=== PATIENT | male | born 1940 ===

== ENCOUNTER 2017-04-29 02:42 | Inpatient (IN) | payer MEDICARE ==
[2017-04-29 02:51] VITALS: BMI 26.6
--- NOTE | 2017-04-29 03:12 | ED PDOC ---
HPI: Chest Pain Time Seen by Provider: 04/29/17 02:45 Chief Complaint (Nursing): Chest Pain Chief Complaint (Provider): chest pain History Per: Patient History/Exam Limitations: no limitations Onset/Duration Of Symptoms: Hrs Current Symptoms Are (Timing): Better Nitro Therapy Administered: 1, Per EMS Additional History Per: Patient, Family Additional Complaint(s): The patient is a 77yo male with history of DM, hypertension, hypercholesterolemia, presents to the ED for evaluation of left neck pain radiating down to his chest. Patient reports the pain was sudden onset and atraumatic. Of note, patient took 325 mg Aspirin and was given 1 nitro therapy by EMS on his way here which helped with the pain. Patient reports he currently does not have chest pain or shortness of breath but does have neck pain. He denies any other medical complaints. Past Medical History Reviewed: Historical Data, Nursing Documentation, Vital Signs Vital Signs: Last Vital Signs Temp 97.8 F 04/30/17 00:05 Pulse 70 04/30/17 00:05 Resp 20 04/30/17 00:05 BP 121/68 04/30/17 00:05 Pulse Ox 97 04/30/17 00:05 - Medical History PMH: Diabetes, HTN, Hypercholesterolemia Denies: Chronic Kidney Disease - Surgical History Surgical History: No Surg Hx - Family History Family History: States: No Known Family Hx, Unknown Family Hx - Social History Current smoker - smoking cessation education provided: No Alcohol: None Drugs: Denies - Home Medications Home Medications: Ambulatory Orders Medication Instructions Recorded Allopurinol [Zyloprim] 1 tab PO DAILY 04/29/17 Aspirin [Adult Low Dose Aspirin EC] 1 tab PO DAILY 04/29/17 Azilsartan Med/Chlorthalidone 1 tab PO DAILY 04/29/17 [Edarbyclor 40-12.5 mg Tablet] Cholecalciferol (Vitamin D3) 1 tab PO DAILY 04/29/17 [Vitamin D3] Clopidogrel [Plavix] 1 tab PO DAILY 04/29/17 Linagliptin [Tradjenta] 1 tab PO DAILY 04/29/17 Nateglinide [Starlix] 1 tab PO TID 04/29/17 Yelcy-3-Pjhi Ethyl Esters 1 GM 2 tab PO DAILY 04/29/17 [Lovaza] Ranolazine [Ranexa] 1 tab PO BID 04/29/17 - Allergies Allergies/Adverse Reactions: Allergies Allergy/AdvReac Type Severity Reaction Status Date / Time No Known Allergies Allergy Verified 04/29/17 02:51 Review of Systems ROS Statement: Except As Marked, All Systems Reviewed And Found Negative Cardiovascular: Positive for: Chest Pain (now resolved) Respiratory: Negative for: Shortness of Breath Musculoskeletal: Positive for: Neck Pain (left sided) Physical Exam - Reviewed Nursing Documentation Reviewed: Yes Vital Signs Reviewed: Yes - Physical Exam Appears: Positive for: Well, Non-toxic, No Acute Distress Head Exam: Positive for: ATRAUMATIC, NORMAL INSPECTION, NORMOCEPHALIC Skin: Positive for: Normal Color, Warm, DRY Eye Exam: Positive for: Normal appearance Neck: Positive for: Normal, Supple Cardiovascular/Chest: Positive for: Regular Rate, Rhythm Respiratory: Positive for: Normal Breath Sounds. Negative for: Respiratory Distress Gastrointestinal/Abdominal: Positive for: Normal Exam, Soft. Negative for: Tenderness Extremity: Positive for: Normal ROM. Negative for: Deformity, Swelling Neurologic/Psych: Positive for: Alert, Oriented. Negative for: Motor/Sensory Deficits - Laboratory Results Result Diagrams: 04/29/17 03:20 04/29/17 03:20 - ECG O2 Sat by Pulse Oximetry: 99 (RA) Pulse Ox Interpretation: Normal Medical Decision Making Medical Decision Making: Time: 0305 Impression: Neck pain, chest pain Plan: -- EKG -- Labs -- Chest x-ray Reassess Time: [address] Wooten, who will admit the patient. milton strong cardiac history pt needs admission for cardiac monitoring and rule out [place]/malignant arrythmia pt got asa Scribe Attestation: Documented by Agnieszka Kinney acting as a scribe for Cat Ro MD. Provider Attestation: All medical record entries made by the Scribe were at my direction and personally dictated by me. I have reviewed the chart and agree that the record accurately reflects my personal performance of the history, physical exam, medical decision making, and the department course for this patient. I have also personally directed, reviewed, and agree with the discharge instructions and disposition. Disposition - Clinical Impression Clinical Impression: Chest pain - Patient ED Disposition Is Patient to be Admitted: Yes - Disposition Disposition Time: 04:00 Condition: STABLE
[2017-04-29 03:23] LABS: BASO % 0.6 % (0.0-2.0); EOS # 0.1 K/uL (0.0-0.7); EOS % 1.6 % (0.0-4.0); HEMOGLOBIN 16.8 g/dL (12.0-18.0); LYMPH # 3.2 K/uL (1.0-4.3); LYMPH % 46.9 % (20.0-40.0); MEAN CELL VOLUME 86.6 fl (80.0-94.0); MEAN CORPUSCULAR HEMOGLOBIN 29.5 pg (27.0-31.0); MEAN PLATELET VOLUME 9.6 fl (7.2-11.7); MONO # 0.7 K/uL (0.0-0.8); NEUT # 2.8 K/uL (1.8-7.0); NEUT % 40.9 % (50.0-75.0); NRBC % 0.1 % (0.0-0.0); RBC 5.71 Mil/uL (4.40-5.90); RED CELL DISTRIBUTION WIDTH 13.8 % (11.5-14.5); WHITE BLOOD COUNT 6.8 K/uL (4.8-10.8)
[2017-04-29 03:31] LABS: ALB/GLOB RATIO 1.3 (1.0-2.1); ALBUMIN 4.1 g/dL (3.5-5.0); ALT/SGPT 53 U/L (21-72); AST/SGOT 26 U/L (17-59); BLOOD UREA NITROGEN 25 mg/dl (9-20); CALCIUM 9.9 mg/dL (8.4-10.2); GFR AFRICAN-AMERICAN 55; GFR NON-AFRICAN AMERICAN 46
[2017-04-29] MEDS ORDERED: Patient's Own Med (Cholecalciferol (Vitamin D3) [Vitamin D3] 1 TAB) PO SCH (14:30)
--- NOTE | 2017-04-29 15:03 | CP.PCM.HP ---
<Nika Madrid - Last Filed: 04/29/17 15:12> History of Present Illness - History of Present Illness History of Present Illness: 77yo male with PMHx of DM, hypertension, hypercholesterolemia, presents to the ED c/o sudden left sided chest pain, radiating to left neck, and no associated to SOB, nausea, vomiting or other complain. Of note, patient took 325 mg Aspirin and was given 1 nitro therapy by EMS on his way here which helped with the pain. Patient denies chest pain, SOB, N/V or other complains at this evaluation. Present on Admission - Present on Admission Any Indicators Present on Admission: No History of DVT/PE: No History of Uncontrolled Diabetes: No Urinary Catheter: No Decubitus Ulcer Present: No Review of Systems - Constitutional Constitutional: As Per HPI Past Patient History - Past Medical History & Family History Past Medical History?: Yes - Past Social History Smoking Status: Never Smoked - CARDIAC Hx Cardiac Disorders: Yes Hx Hypercholesterolemia: Yes Hx Hypertension: Yes - PULMONARY Hx Respiratory Disorders: No - NEUROLOGICAL Hx Neurological Disorder: No - HEENT Hx HEENT Problems: Yes Hx Cataracts: Yes - RENAL Hx Chronic Kidney Disease: No - ENDOCRINE/METABOLIC Hx Endocrine Disorders: Yes Hx Diabetes Mellitus Type 2: Yes - HEMATOLOGICAL/ONCOLOGICAL Hx Blood Disorders: No Hx AIDS: No Hx Human Immunodeficiency Virus (HIV): No - INTEGUMENTARY Hx Dermatological Problems: No - MUSCULOSKELETAL/RHEUMATOLOGICAL Hx Musculoskeletal Disorders: No Hx Falls: No - GASTROINTESTINAL Hx Gastrointestinal Disorders: No - GENITOURINARY/GYNECOLOGICAL Hx Genitourinary Disorders: No - PSYCHIATRIC Hx Psychophysiologic Disorder: No Hx Substance Use: No - SURGICAL HISTORY Hx Surgeries: Yes Hx Cataract Extraction: Yes Hx Cardiac Catheterization: Yes Hx Eye Surgery: Yes (CATARACT, RIGHT RETINAL SURGERY) - ANESTHESIA Hx Anesthesia: Yes Hx Anesthesia Reactions: Yes Hx Malignant Hyperthermia: No Has any member of the family had a problem w/ anesthesia?: No Meds Allergies/Adverse Reactions: Allergies Allergy/AdvReac Type Severity Reaction Status Date / Time No Known Allergies Allergy Verified 04/29/17 02:51 Physical Exam - Constitutional Appears: Non-toxic, No Acute Distress - Head Exam Head Exam: NORMAL INSPECTION - Eye Exam Eye Exam: Normal appearance - ENT Exam ENT Exam: Mucous Membranes Moist - Respiratory Exam Respiratory Exam: Clear to Auscultation Bilateral, NORMAL BREATHING PATTERN - Cardiovascular Exam Cardiovascular Exam: REGULAR RHYTHM, +S1, +S2 - GI/Abdominal Exam GI & Abdominal Exam: Normal Bowel Sounds, Soft. absent: Distended, Guarding, Tenderness - Extremities Exam Extremities exam: Positive for: normal inspection. Negative for: calf tenderness, pedal edema - Neurological Exam Neurological exam: Alert, Oriented x3 - Skin Skin Exam: Dry, Intact, Normal Color Results - Vital Signs Recent Vital Signs: Last Vital Signs Temp 98.1 F 04/29/17 08:00 Pulse 53 L 04/29/17 12:56 Resp 18 04/29/17 12:56 BP 138/81 04/29/17 08:00 Pulse Ox 97 04/29/17 12:56 - Labs Result Diagrams: 04/29/17 03:20 04/29/17 03:20 Labs: Laboratory Results - last 24 hr 04/29/17 04/29/17 04/29/17 07:37 11:48 14:10 POC Glucose (mg/dL) 85 Troponin I 0.0230 0.0290 Assessment & Plan - Assessment and Plan (Free Text) Assessment: 77yo male with history of DM, hypertension, hypercholesterolemia, admitted to r /o ACS. Plan: Chest pain c/w aspirin 81 mg PO daily c/w Plavix 75 mg PO daily F/u EKG f/u Troponin I x 3 f/u cardiology consult recommendations appreciated -f/u echo Diabetes Mellitus type 2 c/w home januvia 100 mg PO daily c/w home nateglinide 120 mg TID c/w accucheck ACHS DVT prophylaxis Lovenox 40 mg SC daily - Date & Time Date: 04/29/17 Time: 10:30 <Adam Wooten - Last Filed: 04/30/17 10:03> Results - Vital Signs Recent Vital Signs: Last Vital Signs Temp 98.3 F 04/30/17 08:17 Pulse 67 04/30/17 08:17 Resp 20 04/30/17 08:17 BP 147/79 04/30/17 08:17 Pulse Ox 96 04/30/17 08:17 - Labs Result Diagrams: 04/30/17 05:20 04/30/17 05:20 Assessment & Plan - Assessment and Plan (Free Text) Plan: I was present during evaluation and discussed with Dr Madrid re plans of care and tx. Adam Wooten M.D.
[2017-04-29] MEDS ORDERED: Dextrose 50% SYRINGE Inj (50 ml) IV PRN (15:41)
[2017-04-29] MEDS ORDERED: Glucagon Recombinant 1 mg Inj IM PRN (15:41)
[2017-04-29] MEDS: Enoxaparin 40 mg Syringe SC SCH (16:25)
[2017-04-29] MEDS: Patient's Own Med (Azilsartan Med/Chlorthalidone [Edarbyclor 40-12.5 Mg Tablet] 1 TAB) PO SCH (16:26)
[2017-04-29] MEDS: Insulin Regular 100 units/ml SC SCH ×2 (16:26→22:15)
[2017-04-29 16:33] LABS: INR 1.2 (0.9-1.2); PROTHROMBIN TIME 12.3 Seconds (9.8-13.1)
[2017-04-30] MEDS: Insulin Regular 100 units/ml SC SCH ×4 (06:36→21:24)
[2017-04-30 06:57] LABS: HEMOGLOBIN 17.3 g/dL (12.0-18.0); MEAN CELL VOLUME 87.3 fl (80.0-94.0); MEAN CORPUSCULAR HGB CONC 33.2 g/dL (33.0-37.0); RBC 5.97 Mil/uL (4.40-5.90); RED CELL DISTRIBUTION WIDTH 13.8 % (11.5-14.5); WHITE BLOOD COUNT 6.1 K/uL (4.8-10.8)
[2017-04-30 07:02] LABS: CALCIUM 9.7 mg/dL (8.4-10.2)
[2017-04-30] MEDS ORDERED: LINAGLIPTIN PO SCH (09:00)
--- NOTE | 2017-04-30 10:06 | CP.PCM.DIS ---
Provider - Provider Date of Admission: 04/30/17 06:32 Attending physician: Adam Wooten MD Primary care physician: Angel Rios MD Time Spent in preparation of Discharge (in minutes): 30 Hospital Course - Lab Results Lab Results: Most Recent Lab Values WBC 6.1 K/uL (4.8-10.8) 04/30/17 05:20 RBC 5.97 Mil/uL (4.40-5.90) H 04/30/17 05:20 Hgb 17.3 g/dL (12.0-18.0) 04/30/17 05:20 Hct 52.2 % (35.0-51.0) H 04/30/17 05:20 MCV 87.3 fl (80.0-94.0) 04/30/17 05:20 MCH 29.0 pg (27.0-31.0) 04/30/17 05:20 MCHC 33.2 g/dL (33.0-37.0) 04/30/17 05:20 RDW 13.8 % (11.5-14.5) 04/30/17 05:20 Plt Count 130 K/uL (130-400) 04/30/17 05:20 MPV 9.6 fl (7.2-11.7) 04/29/17 03:20 Neut % (Auto) 40.9 % (50.0-75.0) L 04/29/17 03:20 Lymph % (Auto) 46.9 % (20.0-40.0) H 04/29/17 03:20 [place] % (Auto) 10.0 % (0.0-10.0) 04/29/17 03:20 Eos % (Auto) 1.6 % (0.0-4.0) 04/29/17 03:20 Baso % (Auto) 0.6 % (0.0-2.0) 04/29/17 03:20 Neut # 2.8 K/uL (1.8-7.0) 04/29/17 03:20 Lymph # 3.2 K/uL (1.0-4.3) 04/29/17 03:20 [place] # 0.7 K/uL (0.0-0.8) 04/29/17 03:20 Eos # 0.1 K/uL (0.0-0.7) 04/29/17 03:20 Baso # 0.0 K/uL (0.0-0.2) 04/29/17 03:20 PT 12.3 Seconds (9.8-13.1) 04/29/17 15:48 INR 1.2 (0.9-1.2) 04/29/17 15:48 Sodium 140 mmol/l (132-148) 04/30/17 05:20 Potassium 4.2 MMOL/L (3.6-5.0) 04/30/17 05:20 Chloride 104 mmol/L (98-107) 04/30/17 05:20 Carbon Dioxide 28 mmol/L (22-30) 04/30/17 05:20 Anion Gap 13 (10-20) 04/30/17 05:20 BUN 24 mg/dl (9-20) H 04/30/17 05:20 Creatinine 1.5 mg/dL (0.8-1.5) 04/30/17 05:20 Est GFR ( Amer) 55 04/30/17 05:20 Est GFR (Non-Af Amer) 46 04/30/17 05:20 POC Glucose (mg/dL) 117 mg/dL (65-110) H 04/30/17 05:36 Random Glucose 128 mg/dL (75-110) H 04/30/17 05:20 Calcium 9.7 mg/dL (8.4-10.2) 04/30/17 05:20 Total Bilirubin 0.4 mg/dl (0.2-1.3) 04/29/17 03:20 AST 26 U/L (17-59) 04/29/17 03:20 ALT 53 U/L (21-72) 04/29/17 03:20 Alkaline Phosphatase 65 U/L (38-126) 04/29/17 03:20 Troponin I 0.0260 ng/mL (0.00-0.120) 04/29/17 20:37 Total Protein 7.3 G/DL (6.3-8.2) 04/29/17 03:20 Albumin 4.1 g/dL (3.5-5.0) 04/29/17 03:20 Globulin 3.2 gm/dL (2.2-3.9) 04/29/17 03:20 Albumin/Globulin Ratio 1.3 (1.0-2.1) 04/29/17 03:20 - Hospital Course Hospital Course: Jael starks a 77 y/o male admitted for chest pain Has a hx of HTN hyperlipidemia DM 2 and hypruricemia. Tests showed normal troponins x 3 EKG was normal. He was started on medications and started on Januvia and metfomrin He remained stable for the rest of his stay and was discharged in stable condition and to follow up with Dr Mychal Munroe his PMD in 1 to 2 weeks He was advised to have stress test as outpatient. Discharge Exam - Head Exam Head Exam: ATRAUMATIC, NORMAL INSPECTION, NORMOCEPHALIC - Eye Exam Eye Exam: Normal appearance - Respiratory Exam Respiratory Exam: Clear to PA & Lateral, NORMAL BREATHING PATTERN - Cardiovascular Exam Cardiovascular Exam: REGULAR RHYTHM - GI/Abdominal Exam GI & Abdominal Exam: Normal Bowel Sounds - Neurological Exam Neurological exam: CN II-XII Intact, Oriented x3 - Psychiatric Exam Psychiatric exam: Normal Mood Discharge Plan - Follow Up Plan Condition: STABLE Disposition: HOME/ ROUTINE Additional Instructions: Rx given follow up with Dr munroe. Referrals: Angel Rios MD [Primary Care Provider] -
[2017-04-30] MEDS: Enoxaparin 40 mg Syringe SC SCH (10:18)
[2017-04-30] MEDS: Omega-3-Acid Ethyl Esters 1 GM Cap PO SCH (10:18)
[2017-04-30] MEDS: Patient's Own Med (Azilsartan Med/Chlorthalidone [Edarbyclor 40-12.5 Mg Tablet] 1 TAB) PO SCH (10:38)
--- NOTE | 2017-04-30 11:21 | CARD ---
APPROVED REPORT EXAM: Two-dimensional and M-mode echocardiogram with Doppler and color Doppler. Other Information Quality : GoodRhythm : NSR INDICATION Chest Pain 2D DIMENSIONS IVSd1.26 (0.7-1.1cm)LVDd3.99 (3.9-5.9cm) LVOT Diameter2.04 (1.8-2.4cm)PWd0.86 (0.7-1.1cm) IVSs1.65 (0.8-1.2cm)LVDs2.45 (2.5-4.0cm) FS (%) 38.7 %PWs1.38 (0.8-1.2cm) M-Mode DIMENSIONS Left Atrium (MM)4.18 (2.5-4.0cm)IVSd1.29 (0.7-1.1cm) Aortic Root2.91 (2.2-3.7cm)LVDd4.38 (4.0-5.6cm) Aortic Cusp Exc.1.97 (1.5-2.0cm)PWd1.06 (0.7-1.1cm) IVSs1.71 cmFS (%) 45 % LVDs2.41 (2.0-3.8cm)PWs1.59 cm Mitral Valve MV E Ysubbckw93.6cm/sMV DECEL [id number] A Aqohumrn48.4cm/s MV CRX23ntU/A ratio0.9MVA (PHT)2.30cm2 TDI Lateral E' Peak V6.52cm/sMedial E' Peak V4.73cm/sE/Lateral E'7.0 E/Medial E'9.6 Pulmonary Valve PV Peak Crkdxsoy274.1cm/s Tricuspid Valve TR Peak Jbbtcvwo122bx/sRAP IXUVCGVM66amSnIU Peak Gr.16mmHg [id number] LEFT VENTRICLE The left ventricle is normal size. There is mild to moderate asymmetric left ventricular hypertrophy. The left ventricular function is normal. The left ventricular ejection fraction is 60% There is normal LV segmental wall motion. The left ventricular diastolic function is normal. No left ventricle thrombus noted on this study. There is no ventricular septal defect visualized. There is no left ventricular aneurysm. There is no mass noted in the left ventricle. RIGHT VENTRICLE The right ventricle is normal size. There is normal right ventricular wall thickness. The right ventricular systolic function is normal. ATRIA The left atrium size is normal. The right atrium size is normal. The interatrial septum is intact with no evidence for an atrial septal defect. AORTIC VALVE The aortic valve is normal in structure and function. There is trace aortic regurgitation. There is no aortic valvular stenosis. There is no aortic valvular vegetation. MITRAL VALVE The mitral valve is normal in structure and function. There is no evidence of mitral valve prolapse. There is no mitral valve stenosis. There is no mitral valve regurgitation noted. TRICUSPID VALVE The tricuspid valve is normal in structure and function. There is no tricuspid valve regurgitation noted. There is no tricuspid valve prolapse or vegetation. There is no tricuspid valve stenosis. PULMONIC VALVE The pulmonary valve is normal in structure and function. There is no pulmonic valvular regurgitation. There is no pulmonic valvular stenosis. GREAT VESSELS The aortic root is normal in size. The ascending aorta is normal in size. The IVC is normal in size and collapses >50% with inspiration. PERICARDIAL EFFUSION The pericardium appears normal. There is no pleural effusion. <Conclusion> Normal LV Systolic Function Asymmetric Septal Hypertrophy Trace Aortic Insufficiency
[2017-04-30] MEDS: RANOLAZINE 500 MG PO SCH (17:22)
--- NOTE | 2017-04-30 17:41 | CARD ---
APPROVED REPORT EKG Measurement Heart [id number] AL [id number] <Conclusion> Sinus rhythm with premature atrial complexes Otherwise normal ECG
--- NOTE | 2017-04-30 18:03 | CARD ---
APPROVED REPORT EKG Measurement Heart [id number] SD [id number] <Conclusion> Sinus bradycardia Otherwise normal ECG
--- NOTE | 2017-04-30 19:17 | CP.PCM.CON ---
History of Present Illness - History of Present Illness History of Present Illness: I was asked to see patient by Dr. Wooten, and Dr Langston, who I am covering. Patient is a 77 year old male with PMH CAD s/p PCI, renal artery stenting, DM, HTN who presents with chest pain. Patient describes a substernal chest pressure that occurred 2 dasy ago. The patient states symptoms dissipated, but hte patient developed persistent pain. The patient is currently asymptomatic with family at the bedside. Review of Systems - Constitutional Constitutional: absent: As Per HPI, Anorexia, Chills, Daytime Sleepiness, Excessive Sweating, Fatigue, Fever, Frequent Falls, Headache, Increased Appetite , Lethargy, Malaise, Night Sweats, Snoring, Sleep Apnea, Weight Gain, Weight Loss, Weakness, Other - EENT Eyes: absent: As Per HPI, Blind Spots, Blurred Vision, Change in Vision, Decreased Night Vision, Diplopia, Discharge, Dry Eye, Exophthalmos, Floaters, Irritation, Itchy Eyes, Loss of Peripheral Vision, Pain, Photophobia, Requires Corrective Lenses, Sees Flashes, Spots in Vision, Tunnel Vision, Other Visual Disturbances, Loss of Vision, Other Ears: absent: As Per HPI, Decreased Hearing, Ear Discharge, Ear Pain, Tinnitus, Abnormal Hearing, Disequilibrium, Dizziness, Other Nose/Mouth/Throat: absent: As Per HPI, Epistaxis, Nasal Congestion, Nasal Discharge, Nasal Obstruction, Nasal Trauma, Nose Pain, Post Nasal Drip, Sinus Pain, Sinus Pressure, Bleeding Gums, Change in Voice, Dental Pain, Dry Mouth, Dysphagia, Halitosis, Hoarsness, Lip Swelling, Mouth Lesions, Mouth Pain, Odynophagia, Sore Throat, Throat Swelling, Tongue Swelling, Facial Pain, Neck Pain, Neck Mass, Other - Cardiovascular Cardiovascular: Chest Pain - Respiratory Respiratory: absent: As Per HPI, Cough, Dyspnea, Hemoptysis, Dyspnea on Exertion , Wheezing, Snoring, Stridor, Pain on Inspiration, Chest Congestion, Excessive Mucous Production, Change in Mucous Color, Pain with Coughing, Other - Gastrointestinal Gastrointestinal: absent: As Per HPI, Abdominal Pain, Belching, Bloating, Change in Bowel Habits, Change in Stool Character, Coffee Ground Emesis, Constipation, Cramping, Diarrhea, Dyspepsia, Dysphagia, Early Satiety, Excessive Flatus, Fecal Incontinence, Heartburn, Hematemesis, Hematochezia, Loose Stools, Melena, Nausea, Odynophagia, Temesmus, Vomiting, Other - Genitourinary Genitourinary: absent: As Per HPI, Change in Urinary Stream, Difficulty Urinating, Dysuria, Flank Pain, Hematuria, Pyuria, Nocturia, Urinary Incontinence, Urinary Frequency, Urinary Hesitance, Urinary Urgency, Voiding Freq/Small Amts, Freq UTI, Hx Renal/Bladder Calculi, Hx /Renal Surgery, Bladder Distension, Other - Musculoskeletal Musculoskeletal: absent: As Per HPI, Abnormal Gait, Arthralgias, Atrophy, Back Pain, Deformity, Joint Swelling, Limited Range of Motion, Loss of Height, Muscle Cramps, Muscle Weakness, Myalgias, Neck Pain, Numbness, Radiating Pain into Limb, Stiffness, Tingling, Other - Integumentary Integumentary: absent: As Per HPI, Acne, Alopecia, Bleeding Lesions, Change in Hair, Change in Nails, Change in Pigmentation, Changing Lesions, Dry Skin, Erythema, Furuncle, Hirsutism, Lesions, New Lesions, Non-Healing Lesions, Photosensitivity, Pruritus, Rash, Skin Pain, Skin Ulcer, Sores, Striae, Swelling , Unusual Bruising, Wounds, Jaundice, Other - Neurological Neurological: absent: As Per HPI, Abnormal Gait, Abnormal Hearing, Abnormal Movements, Abnormal Speech, Behavioral Changes, Burning Sensations, Confusion, Convulsions, Disequilibrium, Dizziness, Numbness, Focal Weakness, Frequent Falls , Headaches, Lack of Coordination, Loss of Vision, Memory Loss, Paresthesias, Radicular Pain, Restless Legs, Sensory Deficit, Syncope, Tingling, Tremor, Vertigo, Weakness, Other Visual Disturbances, Other - Psychiatric Psychiatric: absent: As Per HPI, Abnormal Sleep Pattern, Anhedonia, Anxiety, Auditory Hallucinations, Behavioral Changes, Change in Appetite, Change in Libido, Confusion, Depression, Difficulty Concentrating, Hallucinations, Homicidal Ideation, Hopelessness, Irritability, Memory Loss, Mood Swings, Panic Attacks, Paranoia, Suicidal Ideation, Visual Hallucinations, Tactile Hallucinations, Other - Endocrine Endocrine: absent: As Per HPI, Change in Body Appearance, Change in Libido, Cold Intolorance, Deepening of Voice, Excessive Sweating, Fatigue, Flushing, Heat Intolorance, Increase in Ring/Shoe/Hat Size, Palpitations, Polydipsia, Polyphagia, Polyuria, Other - Hematologic/Lymphatic Hematologic: absent: As Per HPI, Easy Bleeding, Easy Bruising, Lymphadenopathy, Other Past Patient History - Past Medical History & Family History Past Medical History?: Yes - Past Social History Alcohol: None Drugs: Denies - CARDIAC Hx Hypercholesterolemia: Yes Hx Hypertension: Yes - PULMONARY Hx Respiratory Disorders: No - NEUROLOGICAL Hx Neurological Disorder: No - HEENT Hx HEENT Problems: Yes Hx Cataracts: Yes - RENAL Hx Chronic Kidney Disease: No - ENDOCRINE/METABOLIC Hx Endocrine Disorders: Yes Hx Diabetes Mellitus Type 2: Yes - HEMATOLOGICAL/ONCOLOGICAL Hx Blood Disorders: No Hx AIDS: No Hx Human Immunodeficiency Virus (HIV): No - INTEGUMENTARY Hx Dermatological Problems: No - MUSCULOSKELETAL/RHEUMATOLOGICAL Hx Musculoskeletal Disorders: No Hx Falls: No - GASTROINTESTINAL Hx Gastrointestinal Disorders: No - GENITOURINARY/GYNECOLOGICAL Hx Genitourinary Disorders: No - PSYCHIATRIC Hx Psychophysiologic Disorder: No Hx Substance Use: No - SURGICAL HISTORY Hx Surgeries: Yes Hx Cataract Extraction: Yes Hx Cardiac Catheterization: Yes Hx Eye Surgery: Yes (CATARACT, RIGHT RETINAL SURGERY) - ANESTHESIA Hx Anesthesia: Yes Hx Anesthesia Reactions: Yes Hx Malignant Hyperthermia: No Has any member of the family had a problem w/ anesthesia?: No Meds Allergies/Adverse Reactions: Allergies Allergy/AdvReac Type Severity Reaction Status Date / Time No Known Allergies Allergy Verified 04/29/17 02:51 - Medications Medications: Current Medications Allopurinol (Zyloprim) 100 mg PO DAILY [facility] Last Admin: 04/30/17 10:20 Dose: 100 mg Aspirin (Ecotrin) 81 mg PO DAILY [facility] Last Admin: 04/30/17 10:17 Dose: 81 mg Chlorthalidone (Hygroton) 12.5 mg PO DAILY [facility] Last Admin: 04/30/17 17:21 Dose: 12.5 mg Clopidogrel Bisulfate (Plavix) 75 mg PO DAILY [facility] Last Admin: 04/30/17 10:19 Dose: 75 mg Dextrose (Dextrose 50% Inj) 0 ml IV STAT PRN; Protocol PRN Reason: Hyglycemia Protocol Dextrose (Glutose 15) 0 gm PO ONCE PRN; Protocol PRN Reason: Hypoglycemia Protocol Enoxaparin Sodium (Lovenox) 40 mg SC DAILY [facility] PRN Reason: Protocol Last Admin: 04/30/17 10:18 Dose: 40 mg Glucagon (Glucagen Diagnostic Kit) 0 mg IM STAT PRN; Protocol PRN Reason: Hypoglycemia Protocol Home Med (Ranolazine [Ranexa]) 1 tab PO BID [facility] Last Admin: 04/30/17 17:22 Dose: 1 tab Insulin Human Regular (Humulin R) 0 units SC ACHS [facility] PRN Reason: Protocol Last Admin: 04/30/17 17:22 Dose: Not Given Metformin HCl (Glucophage) 500 mg PO BIDWM [facility] Last Admin: 04/30/17 17:20 Dose: 500 mg Kvmhg-5-Ueqo Ethyl Esters (Lovaza) 1 gm PO DAILY [facility] Last Admin: 04/30/17 10:18 Dose: 1 gm Sitagliptin Phosphate (Januvia) 100 mg PO DAILY [facility] Last Admin: 04/30/17 10:18 Dose: 100 mg Valsartan (Diovan) 40 mg PO DAILY [facility] Last Admin: 04/30/17 17:20 Dose: 40 mg Physical Exam - Constitutional Appears: Non-toxic - Head Exam Head Exam: NORMAL INSPECTION - Eye Exam Eye Exam: Normal appearance - ENT Exam ENT Exam: Mucous Membranes Moist - Neck Exam Neck exam: Positive for: Full Rom - Respiratory Exam Respiratory Exam: NORMAL BREATHING PATTERN - Cardiovascular Exam Cardiovascular Exam: REGULAR RHYTHM - GI/Abdominal Exam GI & Abdominal Exam: Normal Bowel Sounds - Rectal Exam Rectal Exam: Deferred - Extremities Exam Extremities exam: Negative for: pedal edema - Back Exam Back exam: NORMAL INSPECTION - Neurological Exam Neurological exam: Alert, Oriented x3 - Psychiatric Exam Psychiatric exam: Normal Affect - Skin Skin Exam: Normal Color Results - Vital Signs Recent Vital Signs: Last Vital Signs Temp 98.1 F 04/30/17 15:53 Pulse 66 04/30/17 15:53 Resp 20 04/30/17 15:53 BP 128/78 04/30/17 15:53 Pulse Ox 95 04/30/17 15:53 - Labs Result Diagrams: 04/30/17 05:20 04/30/17 05:20 Labs: Laboratory Results - last 24 hr 04/30/17 04/30/17 11:08 16:12 POC Glucose (mg/dL) 167 H 90 - EKG Data EKG Interpreted by: Myself Assessment & Plan (1) Unstable angina pectoris Assessment and Plan: patient ruled out for myocardial infarction. recommend stress test to evaluate. Status: Acute (2) Non-insulin dependent type 2 diabetes mellitus Assessment and Plan: risk factor for CAD Status: Acute (3) CAD (coronary artery disease) Assessment and Plan: antiplatelet therapy Status: Acute
[2017-05-01] MEDS: Insulin Regular 100 units/ml SC SCH ×3 (08:21→16:53)
[2017-05-01] MEDS: Omega-3-Acid Ethyl Esters 1 GM Cap PO SCH (08:35)
[2017-05-01] MEDS: RANOLAZINE 500 MG PO SCH ×2 (08:36→16:53)
[2017-05-01] MEDS: Enoxaparin 40 mg Syringe SC SCH (10:00)
--- NOTE | 2017-05-01 10:33 | CP.PCM.PN ---
Subjective - Date & Time of Evaluation Date of Evaluation: 05/01/17 Time of Evaluation: 10:32 - Subjective Subjective: Patient has no chest pain Discharge plans were held yesterday due to episode of tachycardia Seen by Dr Acevedo and scheduled for stress test. Objective - Vital Signs/Intake and Output Vital Signs (last 24 hours): Temp Pulse Resp BP Pulse Ox 98.1 F 58 L 18 160/82 H 99 05/01/17 08:00 05/01/17 08:00 05/01/17 08:00 05/01/17 08:00 05/01/17 08:00 - Medications Medications: Current Medications Allopurinol (Zyloprim) 100 mg PO DAILY [facility] Last Admin: 05/01/17 08:36 Dose: Not Given Aspirin (Ecotrin) 81 mg PO DAILY [facility] Last Admin: 05/01/17 08:34 Dose: Not Given Chlorthalidone (Hygroton) 12.5 mg PO DAILY [facility] Last Admin: 05/01/17 08:34 Dose: Not Given Clopidogrel Bisulfate (Plavix) 75 mg PO DAILY [facility] Last Admin: 05/01/17 08:35 Dose: Not Given Dextrose (Dextrose 50% Inj) 0 ml IV STAT PRN; Protocol PRN Reason: Hyglycemia Protocol Dextrose (Glutose 15) 0 gm PO ONCE PRN; Protocol PRN Reason: Hypoglycemia Protocol Enoxaparin Sodium (Lovenox) 40 mg SC DAILY [facility] PRN Reason: Protocol Last Admin: 05/01/17 10:00 Dose: Not Given Glucagon (Glucagen Diagnostic Kit) 0 mg IM STAT PRN; Protocol PRN Reason: Hypoglycemia Protocol Home Med (Ranolazine [Ranexa]) 1 tab PO BID [facility] Last Admin: 05/01/17 08:36 Dose: Not Given Insulin Human Regular (Humulin R) 0 units SC [facility] PRN Reason: Protocol Last Admin: 05/01/17 08:21 Dose: Not Given Metformin HCl (Glucophage) 500 mg PO BIDWM [facility] Last Admin: 05/01/17 08:34 Dose: Not Given Gceed-7-Ujot Ethyl Esters (Lovaza) 1 gm PO DAILY [facility] Last Admin: 05/01/17 08:35 Dose: Not Given Sitagliptin Phosphate (Januvia) 100 mg PO DAILY [facility] Last Admin: 05/01/17 08:35 Dose: Not Given Valsartan (Diovan) 40 mg PO DAILY [facility] Last Admin: 05/01/17 08:34 Dose: Not Given - Labs Labs: PT 12.3 Seconds (9.8-13.1) 04/29/17 15:48 INR 1.2 (0.9-1.2) 04/29/17 15:48 - Head Exam Head Exam: NORMAL INSPECTION - Eye Exam Eye Exam: Normal appearance - ENT Exam ENT Exam: Mucous Membranes Moist - Respiratory Exam Respiratory Exam: Clear to Ausculation Bilateral - Cardiovascular Exam Cardiovascular Exam: REGULAR RHYTHM - GI/Abdominal Exam GI & Abdominal Exam: Normal Bowel Sounds - Neurological Exam Neurological Exam: Awake, Oriented x3 Assessment and Plan (1) Chest pain Status: Acute (2) CAD (coronary artery disease) Status: Acute (3) Non-insulin dependent type 2 diabetes mellitus Status: Acute (4) Unstable angina pectoris Status: Acute - Assessment and Plan (Free Text) Plan: Con tmeds cont tx for stress test folow up with Cardiology
[2017-05-01] MEDS ORDERED: Aminophylline 25 mg/ml Inj ONE (10:46)
--- NOTE | 2017-05-01 12:27 | RAD ---
HISTORY: chest pain COMPARISON: Single frontal chest radiograph 10/05/2012. FINDINGS: LUNGS: No active pulmonary disease. PLEURA: No significant pleural effusion identified, no pneumothorax apparent. CARDIOVASCULAR: Normal. OSSEOUS STRUCTURES: No significant abnormalities. VISUALIZED UPPER ABDOMEN: Normal. OTHER FINDINGS: None. IMPRESSION: No active disease.
--- NOTE | 2017-05-01 18:28 | CP.PCM.PN ---
Subjective - Date & Time of Evaluation Date of Evaluation: 05/01/17 Time of Evaluation: 18:00 - Subjective Subjective: patient feels well. no shortness of breath. Objective - Vital Signs/Intake and Output Vital Signs (last 24 hours): Temp Pulse Resp BP Pulse Ox 97.7 F 57 L 20 133/61 97 05/01/17 16:00 05/01/17 16:00 05/01/17 16:00 05/01/17 16:00 05/01/17 16:00 Intake and Output: 05/01/17 05/01/17 06:59 18:59 Intake Total 1100 Balance 1100 - Medications Medications: Current Medications Allopurinol (Zyloprim) 100 mg PO DAILY [facility] Last Admin: 05/01/17 08:36 Dose: Not Given Aspirin (Ecotrin) 81 mg PO DAILY [facility] Last Admin: 05/01/17 08:34 Dose: Not Given Chlorthalidone (Hygroton) 12.5 mg PO DAILY [facility] Last Admin: 05/01/17 08:34 Dose: Not Given Clopidogrel Bisulfate (Plavix) 75 mg PO DAILY [facility] Last Admin: 05/01/17 08:35 Dose: Not Given Dextrose (Dextrose 50% Inj) 0 ml IV STAT PRN; Protocol PRN Reason: Hyglycemia Protocol Dextrose (Glutose 15) 0 gm PO ONCE PRN; Protocol PRN Reason: Hypoglycemia Protocol Enoxaparin Sodium (Lovenox) 40 mg SC DAILY [facility] PRN Reason: Protocol Last Admin: 05/01/17 10:00 Dose: Not Given Glucagon (Glucagen Diagnostic Kit) 0 mg IM STAT PRN; Protocol PRN Reason: Hypoglycemia Protocol Home Med (Ranolazine [Ranexa]) 1 tab PO BID [facility] Last Admin: 05/01/17 16:53 Dose: 1 tab Insulin Human Regular (Humulin R) 0 units SC [facility] PRN Reason: Protocol Last Admin: 05/01/17 16:53 Dose: 1 u Metformin HCl (Glucophage) 500 mg PO BIDWM [facility] Last Admin: 05/01/17 16:54 Dose: 500 mg Jphiv-4-Yojh Ethyl Esters (Lovaza) 1 gm PO DAILY [facility] Last Admin: 05/01/17 08:35 Dose: Not Given Sitagliptin Phosphate (Januvia) 100 mg PO DAILY [facility] Last Admin: 05/01/17 08:35 Dose: Not Given Valsartan (Diovan) 40 mg PO DAILY [facility] Last Admin: 05/01/17 08:34 Dose: Not Given - Labs Labs: PT 12.3 Seconds (9.8-13.1) 04/29/17 15:48 INR 1.2 (0.9-1.2) 04/29/17 15:48 - Constitutional Appears: Non-toxic - Head Exam Head Exam: NORMAL INSPECTION - Eye Exam Eye Exam: Normal appearance - ENT Exam ENT Exam: Mucous Membranes Moist - Respiratory Exam Respiratory Exam: NORMAL BREATHING PATTERN - Cardiovascular Exam Cardiovascular Exam: REGULAR RHYTHM - GI/Abdominal Exam GI & Abdominal Exam: Normal Bowel Sounds - Rectal Exam Rectal Exam: Deferred - Extremities Exam Extremities Exam: Pedal Edema - Back Exam Back Exam: NORMAL INSPECTION - Neurological Exam Neurological Exam: Alert - Psychiatric Exam Psychiatric exam: Normal Affect - Skin Skin Exam: Normal Color Assessment and Plan (1) Unstable angina pectoris Assessment & Plan: I reviewed the stress test. There is no evidence of myocardial ischemia. Left ventricular function is normal. Patient is stable for discharge and can follow up with Dr. Langston Status: Acute (2) Non-insulin dependent type 2 diabetes mellitus Status: Acute (3) CAD (coronary artery disease) Status: Acute
[2017-05-01 20:13] VITALS: BP 124/63; PULSE 55; RESP 18; TEMP 97.9; O2SAT 96
--- NOTE | 2017-05-02 08:08 | CARD ---
APPROVED REPORT Protocol: LEXISCAN Test Type: Stress Nuclear Medications: Allopurinol 100mg, ASA 81mg, Cholothalidone 12.5mg, Clopidogrel 75mg, Lovenox 40mg, Ranexal 1 tab Medical History: CAD s/p PCI, Renal Artery Stenting, Diabetes, Hypertension, Cataract, Right Retinal Surgery, Target HR: 145 bpm Resting ECG: PVCs Resting Heart Rate: 62 bpm Resting Blood Pressure: 145/74mmHg submaximum (85%): 123 bpm TEST SUMMARY PREINJECTPRE-[id number]. [id number]. INJECTIONNS [id number]. INJECTIONNUC MED00:[id number]. [id number]. PROCEDURE Pharmacologic stress testing was performed using 0.4mg per 5ml of regadenoson given intravenously over 7-10 seconds. POST EXERCISE Reason for Termination: Pharmacologic Stress Test Target HR: No Max HR: 77 bpm 71% of Maximum Predicted HR: 145 bpm Exercise duration: 01:00 min:sec, 0 Stage Exercise capacity: 1.0METs Max Blood Pressure: 161/83mmHg Blood Pressure response to exercise: normal resting BP - appropriate response Heart Rate response to exercise: appropriate Chest Pain: No, none Angina index: 0 Arrhythmia: Yes, ventricular premature beats ST Change: No, none Deviation: 0 mm Clinical Indications Under Appropriate Use Criteria This 77-year-old man, a diabetic with a history of coronary artery disease were required coronary stenting in the past underwent this study to rule out evidence of coronary artery disease. The patient was hospitalized with chest pain and an acute myocardial infarction was ruled out.. The patient underwent this study to evaluate him for possible recurrent myocardial ischemia. His resting electrocardiogram showed sinus rhythm with occasional premature ventricular beats. There were no Q waves detected. His resting blood pressure was 145/74 mmHg. His cardiac auscultation was unremarkable. Stress EKG Interpretation The patient underwent a resting myocardial scan after 10 mCi of sestamibi was given intravenously followed 45 minutes later by myocardial scanning. 2 hours from the initial administration of sestamibi, the patient underwent an intravenous infusion of 0.4 mg of Lexiscan over 10 seconds followed immediately by 30 mCi of sestamibi given intravenously. The patient tolerated Lexiscan infusion without any symptoms and without any changes on his electrocardiogram. The patient left the stress lab symptom free and hemodynamically stable. 45 minutes later he underwent a second myocardial scan. The 2 sets of images were processed. Gated and planar images were acquired. Tomographic images were examined. EXAM: Myocardial Perfusion REST/STRESS Image QualityGood Imaging Protocol The imaging protocol used to acquire images was Rest Tc-99m/stress Tc-99m 1 day Rest Spect myocardial perfusion imaging was performed in supine position 75 minutes following the injection of 10 mCi of Tc-99 Myoview. Time of rest injection: 7:47 Time of rest imagin:00 At peak stress, the patient was injected intravenously with 30mCi of Tc-99 tetrofosmin after an infusion time of minutes and seconds. Time of stress injection: 11:20 Time of stress imagin:00 Gated Stress Spect was performed 120 minutes after intravenous Tc-99 Myoview injection. The images were gated to evaluate regional wall motion and calculate ventricular ejection fraction. LV Perfusion The resting as well as post Lexiscan images showed normal regional sestamibi uptake. Wall Motion Gated images showed a normal-sized left ventricle with normal regional wall motion and wall thickening. His resting left ventricular ejection fraction was 75%. CONCLUSION 1. The test failed to demonstrated any evidence of potentially ischemic myocardium. His resting left ventricular ejection fraction was 75%. Recommendation Continue coronary risk factor management.
== END 2017-05-01 20:16 | disposition home or self-care (01) | DRG 303 ==
LOC: H.ER 02:42 → H.ERHOLD 05:45 → H.TEL 11:59 → INTOOBSV 04-30 06:32 → OBSVTOIN 04-30 06:32
PROVIDERS: ADMIT Family Medicine; ATTEND Family Medicine
DX: I25.110 Atherosclerotic heart disease of native coronary artery with unstable angina pectoris (principal); E11.9 Type 2 diabetes mellitus without complications; I10 Essential (primary) hypertension; Z98.61 Coronary angioplasty status; E78.00 Pure hypercholesterolemia, unspecified; E78.5 Hyperlipidemia, unspecified